=== PATIENT | male | born 1955 | race Caucasian/White ===

== ENCOUNTER 2018-07-16 09:28 | Emergency (ER) | payer OTHER ==
[2018-07-16] MEDS ORDERED: Lidocaine 1% 10 ML MDV ONE (10:00)
--- NOTE | 2018-07-17 16:47 | EDM.PDOC ---
ED HPI GENERAL MEDICAL PROBLEM - General Chief Complaint: General Stated Complaint: fish hook Time Seen by Provider: 07/16/18 09:45 Source of Information: Reports: Patient History Limitations: Reports: No Limitations - History of Present Illness INITIAL COMMENTS - FREE TEXT/NARRATIVE: This is a 63yo M here for a right thumb fish hook. He states his tetanus is up to date. Onset: Sudden Location: Reports: Upper Extremity, Right Right Hand Pain Score (Numeric/FACES): 3 - Related Data Allergies Allergy/AdvReac Type Severity Reaction Status Date / Time No Known Allergies Allergy Verified 07/16/18 09:46 ED ROS GENERAL - Review of Systems Review Of Systems: ROS reveals no pertinent complaints other than HPI. ED EXAM, GENERAL - Physical Exam Exam: See Below Exam Limited By: No Limitations General Appearance: Alert, WD/WN, No Apparent Distress Ears: Normal External Exam Nose: Normal Inspection Throat/Mouth: Normal Inspection Head: Atraumatic, Normocephalic Neck: Normal Inspection Respiratory/Chest: No Respiratory Distress, Lungs Clear, Normal Breath Sounds Cardiovascular: Normal Peripheral Pulses, Regular Rate, Rhythm Peripheral Pulses: 2+: Dorsalis Pedis (L), Dorsalis Pedis (R) GI/Abdominal: Normal Bowel Sounds Skin Exam: Wound/Incision (fish hook embedded) ED GENERAL MEDICAL PROCEDURES - Additional/Other Procedure(s) Other (Free Text) Procedure(s): Right thumb prepped sterilely and injected 0.5mL lidocaine at injury site without complications. 18 ga needle used to retract hook on kailash and release tendon intact. Patient tolerated procedure well without complications. Course - Vital Signs Last Recorded V/S: Last Vital Signs Temp 36.6 C 07/16/18 09:35 Pulse 69 07/16/18 09:35 Resp 18 07/16/18 09:35 BP 152/89 H 07/16/18 09:35 Pulse Ox 98 07/16/18 09:35 Departure - Departure Time of Disposition: 10:25 Disposition: Home, Self-Care 01 Clinical Impression: Fish hook injury of finger - Discharge Information Instructions: Wound Care, Adult Referrals: PCP,None [Primary Care Provider] - Forms: ED Department Discharge Additional Instructions: Discharge home Keep wound clean and dry. Follow up with your primary provider as needed. Call or return to the ER if you have any questions or concerns. - Problem List & Annotations (1) Fish hook injury of finger SNOMED Code(s): 62214885 Code(s): S69.90XA - UNSP INJURY OF UNSP WRIST, HAND AND FINGER(S), INIT ENCNTR Status: Acute Priority: High Qualifiers: Encounter type: initial encounter Laterality: right Qualified Code(s): S69.91XA - Unspecified injury of right wrist, hand and finger(s), initial encounter - Problem List Review Problem List Initiated/Reviewed/Updated: Yes - Assessment/Plan Plan: Counseled on wound care. Tetanus addressed. Patient agrees on f/u if any concerns or infection. F/u as directed and as needed.
== END 2018-07-16 10:05 | disposition home or self-care (01) ==
LOC: LB.ED 09:28
DX: S60.351A Superficial foreign body of right thumb, initial encounter (principal); W45.8XXA Other foreign body or object entering through skin, initial encounter
CPT/HCPCS: 99283; J2001